=== PATIENT | male | born 1955 | race Caucasian/White ===

== ENCOUNTER 2018-03-08 15:11 | Emergency (ER) | payer BC, OTHER ==
[2018-03-08] MEDS: LIDOCAINE 2% JELLY 30 ML TOP (16:30)
== END 2018-03-08 18:10 | disposition home or self-care (01) ==
LOC: E/R 15:11
DX: K64.4 Residual hemorrhoidal skin tags (principal); I10 Essential (primary) hypertension
CPT/HCPCS: 99284